=== PATIENT | female | born 1960 | race Hispanic/Latino ===

== ENCOUNTER → 2023-04-09 | Outpatient (CLI) | payer BC, OTHER ==
[~2023-04-09] MED LIST: ACET1030H NEB; ALBU8.5H8 IH; ASPI-1197 PO; AZIT250T9 PO; CARV25TA PO; DIPH50 PO; HYDR-3420 PO; HYDR50TA PO; LORA10CA PO; OLME40TA18 PO; OLOP5DRO26 OP; PANT40TA54 PO; PRED20TA3 PO
== END | disposition home or self-care (01) ==
LOC: RAH 09:10
PROVIDERS: ATTEND Nurse Practitioner
DX: S40.011A Contusion of right shoulder, initial encounter (principal); M19.011 Primary osteoarthritis, right shoulder; M75.101 Unspecified rotator cuff tear or rupture of right shoulder, not specified as traumatic; M25.411 Effusion, right shoulder; M65.811 Other synovitis and tenosynovitis, right shoulder; X58.XXXA Exposure to other specified factors, initial encounter; Y93.89 Activity, other specified; Y92.89 Other specified places as the place of occurrence of the external cause; Y99.8 Other external cause status
CPT/HCPCS: 73221